=== PATIENT | female | born 1980 | race Caucasian/White ===

== ENCOUNTER → 2017-05-18 | Day surgery (SDC) | payer OTHER ==
--- NOTE | 2017-05-18 15:55 | MRI ---
BRAIN MRI WITH AND WITHOUT CONTRAST: Date: 05-18-17 Comparison: None. History: Seizure disorder. Technique: Multiplanar, multisequence MR imaging of the brain obtained without and with contrast maria d ritesh seizure protocol. FINDINGS: The diffusion weighted imaging demonstrates no evidence for acute infarction. The hippocampi appear symmetric in structure, signal intensity and size. The septum pellucidum appears partially absent. The coronal gradient echo imaging appears unremarkable. Along the posterior and superior aspect of the Sylvian fissure, there is an area of extensive abnorma l thickened cortex which demonstrates abnormal microlobulations with diffuse cortical thickening. The cortical sulcus in this region at the posterior superior aspect of the sylvian fissure is abnormally deep, extending into the deep white matter. This involves the posterior frontal region and involves a portion of the right frontal region which measures at least 4.5 cm in craniocaudal dimension x 2.1 cm in transverse dimension. This is best seen from the axial level of the thalami through the axial level of the centrum semiovale with abnormal thickened cortex extending centrally into the region of the deep white matter of the posterior right frontal lobe. Post contrast imaging demonstrates no abnormal enhancement within the brain parenchyma. IMPRESSION: There is an extensive area of abnormal cortex involving the posterior aspect and superior aspect of t he Sylvian fissure within the posterior right frontal lobe consistent with extensive cortical dysplas ia/polymicrogyria as described above. There are areas of partial absence of the septum pellucidum, wh ich can be seen on the basis of septo-optic dysplagia. POS: [facility]
== END ==
LOC: TBSIIMAG 12:35 → EEG 12:36
PROVIDERS: ATTEND Family Medicine
DX: G40.909 Epilepsy, unspecified, not intractable, without status epilepticus (principal)
CPT/HCPCS: 70553; 95822

== ENCOUNTER 2022-02-05 13:43 | Inpatient (IN) | payer MEDICARE, MEDICAID ==
[2022-02-05] MEDS ORDERED: HYDROmorphone 0.5 MG/0.5 ML SYRINGE SLOW IVP PRN (15:17)
[2022-02-05] MEDS ORDERED: HYDROmorphone 0.5 MG/0.5 ML SYRINGE SLOW IVP SCH ×2 (15:19→23:00)
[2022-02-05] MEDS ORDERED: Diazepam 5 MG TAB PO PRN (15:20)
[2022-02-05 15:45] VITALS: BMI 19.1
[2022-02-05] MEDS: Sodium Chloride 0.9% 1,000 ML IV SCH ×2 (16:41→23:30)
[2022-02-05] MEDS: Diazepam 5 MG TAB PO SCH (20:41)
[2022-02-05] MEDS: Lacosamide 50 mg Tablet PO SCH (20:41)
[2022-02-05] MEDS: OXcarbazepine 300 MG TAB PO SCH (20:42)
[2022-02-05] MEDS: Morphine 4 MG/ML VIAL SLOW IVP PRN (20:43)
[2022-02-05] MEDS ORDERED: OXcarbazepine 150 MG TAB PO SCH (21:00)
[2022-02-05] MEDS ORDERED: Lacosamide 50 mg Tablet PO SCH (21:00)
[2022-02-05] MEDS ORDERED: metroNIDAZOLE 500 MG in Premix Bag 1 BAG IVPB SCH (22:00)
[2022-02-05] MEDS: Vancomycin HCl 125 MG/5 ML (BATCHED) UDCUP PO SCH (23:28)
[2022-02-06] MEDS: Vancomycin HCl 125 MG/5 ML (BATCHED) UDCUP PO SCH ×4 (05:57→23:30)
[2022-02-06] MEDS: Morphine 4 MG/ML VIAL SLOW IVP PRN ×4 (06:04→23:30)
[2022-02-06 06:49] LABS: #Eosinphils 0.4 thou/uL (0.0-0.7); #Lymphocytes 1.6 thou/uL (1.20-3.40); #Monocytes 0.7 thou/uL (0.11-0.59); #Neutrophils 2.2 thou/uL (1.40-6.50); %Basophils 0.5 % (0.0-1.0); %Eosinophils 8.9 % (0.0-10.0); %Lymphocytes 32.3 % (21.0-51.0); %Monocytes 13.1 % (0.0-10.0); %Neutrophils 45.2 % (42.0-75.0); Hemoglobin 11.6 g/dL (12.0-16.0); Mean Corpuscular HGB CONC 34.2 g/dL (32.0-36.0); Mean Corpuscular Hemoglobin 33.4 pg (27.0-31.0); Mean Corpuscular Volume 97.9 fl (78.0-98.0); Platelet Count 164 10x3/uL (130-400); RBC Distribution Width 12.1 % (11.5-14.5); Red Blood Cell (RBC) Count 3.45 mill/uL (4.20-5.40); White Blood Cell (WBC) Count 4.9 10x3/uL (4.8-10.8)
[2022-02-06 07:33] LABS: Phosphorus 3.8 mg/dL (2.3-4.7)
[2022-02-06 07:40] LABS: ALT (SGPT) 13 U/L (8-55); AST (SGOT) 20 U/L (5-34); Albumin 3.4 g/dL (3.5-5.0); Alkaline Phosphatase 40 U/L (40-110); Anion Gap 11 mmol/L (10-20); BUN (Urea Nitrogen) Less than 4 mg/dL (7.0-18.7); Bilirubin, Total 0.4 mg/dL (0.2-1.2); Calc. Creatinine Clearance 113 mL/min (70-130); Calcium 8.2 mg/dL (7.8-10.44); Carbon Dioxide 21 mmol/L (22-29); Chloride 111 mmol/L (98-107); Estimated GFR 114; Globulin 2.3 g/dL (2.4-3.5); Glucose 83 mg/dL (70-105); Potassium 3.2 mmol/L (3.5-5.1); Protein, Total 5.7 g/dL (6.0-8.3); Sodium 140 mmol/L (136-145)
[2022-02-06] MEDS: OXcarbazepine 300 MG TAB PO SCH ×2 (07:58→19:49)
[2022-02-06] MEDS: Sodium Chloride 0.9% 1,000 ML IV SCH ×3 (07:58→23:31)
[2022-02-06] MEDS: Diazepam 5 MG TAB PO SCH ×2 (07:58→19:50)
[2022-02-06] MEDS: Lacosamide 50 mg Tablet PO SCH ×2 (07:58→19:49)
[2022-02-06] MEDS ORDERED: Enoxaparin Sodium 40 MG/0.4 ML SYRINGE SC SCH (09:00)
[2022-02-06] MEDS ORDERED: Ketorolac Tromethamine 30 MG/ML VIAL IVP SCH (12:00)
[2022-02-06 12:26] LABS: Campy jejuni + coli by PCR Negative (Negative); STEC Shiga Toxin 1+2 Negative (Negative); Salmonella spp. by PCR Negative (Negative); Shigella spp + EIEC by PCR Negative (Negative)
[2022-02-07] MEDS: Ondansetron PF 4 MG/2 ML Vial IVP PRN ×3 (02:12→14:01)
[2022-02-07] MEDS: Sodium Chloride 0.9% 1,000 ML IV SCH ×2 (06:00→14:01)
[2022-02-07] MEDS: Vancomycin HCl 125 MG/5 ML (BATCHED) UDCUP PO SCH ×3 (06:00→17:24)
[2022-02-07] MEDS: Morphine 4 MG/ML VIAL SLOW IVP PRN ×4 (06:27→18:05)
[2022-02-07 06:38] LABS: #Eosinphils 0.5 thou/uL (0.0-0.7); #Lymphocytes 1.8 thou/uL (1.20-3.40); #Monocytes 0.6 thou/uL (0.11-0.59); #Neutrophils 1.9 thou/uL (1.40-6.50); %Basophils 0.5 % (0.0-1.0); %Lymphocytes 37.4 % (21.0-51.0); %Monocytes 12.7 % (0.0-10.0); %Neutrophils 39.5 % (42.0-75.0); Mean Corpuscular HGB CONC 32.9 g/dL (32.0-36.0); Mean Corpuscular Hemoglobin 32.2 pg (27.0-31.0); Mean Corpuscular Volume 97.9 fl (78.0-98.0); Mean Platelet Volume 9.9 fL (7.4-10.4); Platelet Count 176 10x3/uL (130-400); RBC Distribution Width 12.1 % (11.5-14.5); Red Blood Cell (RBC) Count 3.42 mill/uL (4.20-5.40); White Blood Cell (WBC) Count 4.7 10x3/uL (4.8-10.8)
[2022-02-07 07:05] LABS: Anion Gap 7 mmol/L (10-20); BUN (Urea Nitrogen) Less than 4 mg/dL (7.0-18.7); Calc. Creatinine Clearance 122 mL/min (70-130); Calcium 7.8 mg/dL (7.8-10.44); Carbon Dioxide 22 mmol/L (22-29); Chloride 113 mmol/L (98-107); Estimated GFR 116; Glucose 76 mg/dL (70-105); Magnesium 1.8 mg/dL (1.6-2.6); Potassium 3.4 mmol/L (3.5-5.1); Sodium 139 mmol/L (136-145)
[2022-02-07] MEDS: Lacosamide 50 mg Tablet PO SCH ×2 (08:08→21:47)
[2022-02-07] MEDS: Diazepam 5 MG TAB PO SCH ×2 (08:08→21:47)
[2022-02-07] MEDS: Potassium Chloride 20 MEQ TAB PO SCH (08:08)
[2022-02-07] MEDS: OXcarbazepine 300 MG TAB PO SCH ×2 (08:08→21:47)
[2022-02-07] MEDS: Ketorolac Tromethamine 30 MG/ML VIAL IVP PRN ×2 (12:38→21:48)
[2022-02-07] MEDS: metroNIDAZOLE 500 MG in Premix Bag 1 BAG IVPB SCH ×2 (14:01→21:49)
[2022-02-07] MEDS: Diazepam 5 MG TAB PO PRN (16:14)
[2022-02-08] MEDS: Vancomycin HCl 125 MG/5 ML (BATCHED) UDCUP PO SCH ×4 (00:22→17:31)
[2022-02-08] MEDS: Morphine 4 MG/ML VIAL SLOW IVP PRN ×3 (00:22→17:34)
[2022-02-08] MEDS: Sodium Chloride 0.9% 1,000 ML IV SCH ×3 (00:30→13:15)
[2022-02-08] MEDS: Ondansetron PF 4 MG/2 ML Vial IVP PRN ×2 (02:22→12:25)
[2022-02-08] MEDS: Ketorolac Tromethamine 30 MG/ML VIAL IVP PRN ×3 (05:54→21:03)
[2022-02-08] MEDS: metroNIDAZOLE 500 MG in Premix Bag 1 BAG IVPB SCH ×3 (05:57→21:08)
[2022-02-08 07:58] LABS: #Eosinphils 0.4 thou/uL (0.0-0.7); #Lymphocytes 2.1 thou/uL (1.20-3.40); #Monocytes 0.5 thou/uL (0.11-0.59); #Neutrophils 2.2 thou/uL (1.40-6.50); %Basophils 0.7 % (0.0-1.0); %Eosinophils 8.1 % (0.0-10.0); %Lymphocytes 39.6 % (21.0-51.0); %Neutrophils 41.6 % (42.0-75.0); Hemoglobin 11.2 g/dL (12.0-16.0); Mean Corpuscular HGB CONC 33.5 g/dL (32.0-36.0); Mean Corpuscular Hemoglobin 33.1 pg (27.0-31.0); Mean Corpuscular Volume 98.8 fl (78.0-98.0); Mean Platelet Volume 9.9 fL (7.4-10.4); Platelet Count 189 10x3/uL (130-400); RBC Distribution Width 12.3 % (11.5-14.5); Red Blood Cell (RBC) Count 3.39 mill/uL (4.20-5.40); White Blood Cell (WBC) Count 5.2 10x3/uL (4.8-10.8)
[2022-02-08 07:59] LABS: ALT (SGPT) 21 U/L (8-55); AST (SGOT) 25 U/L (5-34); Albumin 2.9 g/dL (3.5-5.0); Alkaline Phosphatase 34 U/L (40-110); Anion Gap 8 mmol/L (10-20); BUN (Urea Nitrogen) Less than 4 mg/dL (7.0-18.7); Bilirubin, Total 0.2 mg/dL (0.2-1.2); Calc. Creatinine Clearance 116 mL/min (70-130); Calcium 7.8 mg/dL (7.8-10.44); Carbon Dioxide 21 mmol/L (22-29); Chloride 114 mmol/L (98-107); Estimated GFR 115; Glucose 70 mg/dL (70-105); Magnesium 1.6 mg/dL (1.6-2.6); Phosphorus 3.4 mg/dL (2.3-4.7); Potassium 3.5 mmol/L (3.5-5.1); Protein, Total 4.9 g/dL (6.0-8.3); Sodium 139 mmol/L (136-145)
[2022-02-08] MEDS: Lacosamide 50 mg Tablet PO SCH ×2 (09:16→21:02)
[2022-02-08] MEDS: Potassium Chloride 20 MEQ TAB PO SCH (09:17)
[2022-02-08] MEDS: OXcarbazepine 300 MG TAB PO SCH ×2 (09:17→21:03)
[2022-02-08] MEDS: Diazepam 5 MG TAB PO SCH ×2 (09:18→21:03)
[2022-02-08] MEDS ORDERED: Saccharomyces boulardii 250 MG CAP PO SCH (11:30)
[2022-02-08] MEDS: Diazepam 5 MG TAB PO PRN (13:14)
[2022-02-09] MEDS: Sodium Chloride 0.9% 1,000 ML IV SCH ×4 (00:10→23:57)
[2022-02-09] MEDS: Vancomycin HCl 125 MG/5 ML (BATCHED) UDCUP PO SCH ×5 (00:11→23:25)
[2022-02-09] MEDS: metroNIDAZOLE 500 MG in Premix Bag 1 BAG IVPB SCH ×3 (06:02→20:30)
[2022-02-09] MEDS: Ketorolac Tromethamine 30 MG/ML VIAL IVP PRN ×2 (06:09→23:52)
[2022-02-09 07:09] LABS: ALT (SGPT) 21 U/L (8-55); AST (SGOT) 20 U/L (5-34); Albumin 3.3 g/dL (3.5-5.0); Alkaline Phosphatase 42 U/L (40-110); Anion Gap 10 mmol/L (10-20); BUN (Urea Nitrogen) 5 mg/dL (7.0-18.7); Bilirubin, Total Less than 0.2 mg/dL (0.2-1.2); Calc. Creatinine Clearance 111 mL/min (70-130); Calcium 8.2 mg/dL (7.8-10.44); Carbon Dioxide 22 mmol/L (22-29); Chloride 113 mmol/L (98-107); Estimated GFR 114; Globulin 2.3 g/dL (2.4-3.5); Glucose 81 mg/dL (70-105); Potassium 3.9 mmol/L (3.5-5.1); Protein, Total 5.6 g/dL (6.0-8.3); Sodium 141 mmol/L (136-145)
[2022-02-09] MEDS: Potassium Chloride 20 MEQ TAB PO SCH (09:22)
[2022-02-09] MEDS: Lacosamide 50 mg Tablet PO SCH ×2 (09:23→20:30)
[2022-02-09] MEDS: Saccharomyces boulardii 250 MG CAP PO SCH (09:23)
[2022-02-09] MEDS: OXcarbazepine 300 MG TAB PO SCH ×2 (09:24→20:30)
[2022-02-09] MEDS: Diazepam 5 MG TAB PO SCH ×2 (09:24→20:29)
[2022-02-09] MEDS: Morphine 4 MG/ML VIAL SLOW IVP PRN (12:04)
[2022-02-09] MEDS: Ondansetron PF 4 MG/2 ML Vial IVP PRN ×2 (12:11→20:29)
[2022-02-10] MEDS: metroNIDAZOLE 500 MG in Premix Bag 1 BAG IVPB SCH ×3 (06:57→21:15)
[2022-02-10] MEDS: Vancomycin HCl 125 MG/5 ML (BATCHED) UDCUP PO SCH ×3 (06:57→18:06)
[2022-02-10] MEDS: Saccharomyces boulardii 250 MG CAP PO SCH (08:37)
[2022-02-10] MEDS: OXcarbazepine 300 MG TAB PO SCH ×2 (08:37→21:13)
[2022-02-10] MEDS: Potassium Chloride 20 MEQ TAB PO SCH (08:37)
[2022-02-10] MEDS: Lacosamide 50 mg Tablet PO SCH ×2 (08:37→21:13)
[2022-02-10] MEDS: Diazepam 5 MG TAB PO SCH ×2 (08:37→21:13)
[2022-02-10] MEDS: Sodium Chloride 0.9% 1,000 ML IV SCH ×2 (08:38→13:00)
[2022-02-10] MEDS: Ondansetron PF 4 MG/2 ML Vial IVP PRN (08:43)
[2022-02-10] MEDS: Morphine 4 MG/ML VIAL SLOW IVP PRN (08:43)
[2022-02-11] MEDS: Vancomycin HCl 125 MG/5 ML (BATCHED) UDCUP PO SCH ×3 (01:05→12:16)
[2022-02-11] MEDS: Sodium Chloride 0.9% 1,000 ML IV SCH ×2 (01:07→13:50)
[2022-02-11] MEDS: metroNIDAZOLE 500 MG in Premix Bag 1 BAG IVPB SCH ×2 (05:54→14:03)
[2022-02-11 07:52] VITALS: BP 110/64; TEMP 98.5
[2022-02-11] MEDS: Potassium Chloride 20 MEQ TAB PO SCH (08:55)
[2022-02-11] MEDS: Lacosamide 50 mg Tablet PO SCH (08:55)
[2022-02-11] MEDS: Diazepam 5 MG TAB PO SCH (08:56)
[2022-02-11] MEDS: OXcarbazepine 300 MG TAB PO SCH (08:56)
[2022-02-11] MEDS: Saccharomyces boulardii 250 MG CAP PO SCH (08:56)
[2022-02-11] MEDS: Ondansetron PF 4 MG/2 ML Vial IVP PRN (09:00)
[2022-02-11] MEDS: Morphine 4 MG/ML VIAL SLOW IVP PRN (09:00)
[2022-02-11] MEDS: Ketorolac Tromethamine 30 MG/ML VIAL IVP PRN (14:13)
== END 2022-02-11 16:17 | disposition home or self-care (01) | DRG 373 ==
LOC: T4-A 13:46 → OBSVTOIN 14:53
PROVIDERS: ADMIT Family Medicine; ATTEND Family Medicine
DX: A04.72 Enterocolitis due to Clostridium difficile, not specified as recurrent (principal); Z20.822 Contact with and (suspected) exposure to COVID-19; F41.9 Anxiety disorder, unspecified; F32.A Depression, unspecified; G40.909 Epilepsy, unspecified, not intractable, without status epilepticus; E87.6 Hypokalemia; D64.9 Anemia, unspecified; Z87.891 Personal history of nicotine dependence; Z88.0 Allergy status to penicillin; Z88.8 Allergy status to other drugs, medicaments and biological substances
CPT/HCPCS: 36415; 80048; 80053; 83630; 83735; 84100; 84145; 85025; 87324; 87449; 87493; 87505; J1170; J1885; J2270; J2405; J7050; U0003; U0005

== ENCOUNTER 2022-08-21 10:15 | Outpatient (CLI) | payer MEDICARE, MEDICAID ==
[2022-08-21 11:39] LABS: #Basophils 0.1 10x3/uL (0.0-0.2); #Eosinphils 0.2 10x3/uL (0.0-0.5); #Monocytes 0.5 10x3/uL (0.0-1.1); #Neutrophils 4.1 10x3/uL (1.5-8.4); %Basophils 0.9 % (0.0-2.0); %Eosinophils 3.6 % (0.0-6.0); %Lymphocytes 25.1 % (18.0-47.0); %Monocytes 8.2 % (0.0-10.0); Hemoglobin 11.8 g/dL (12.0-15.5); Mean Corpuscular HGB CONC 31.5 g/dL (32.0-36.0); Mean Corpuscular Hemoglobin 30.3 pg (27.0-33.0); Mean Corpuscular Volume 96.2 fl (81.6-98.3); Mean Platelet Volume 11.4 fl (7.4-10.4); Platelet Count 259 10x3/uL (150-450); RBC Distribution Width 13.4 % (11.5-14.5); White Blood Cell (WBC) Count 6.6 10x3/uL (3.5-10.5)
[2022-08-21 11:56] LABS: BHCG - Serum Negative (NEGATIVE); Pregs Control Background? CLEAR/WHITE (CLR/WHITE); Pregs Control Bar Appear? YES (CONTROL BAR)
[2022-08-21 11:59] LABS: ALT (SGPT) 25 U/L (8-55); AST (SGOT) 27 U/L (5-34); Albumin 4.5 g/dL (3.5-5.0); Alkaline Phosphatase 55 U/L (40-110); Anion Gap 14 mmol/L (10-20); BUN (Urea Nitrogen) 9 mg/dL (7.0-18.7); Bilirubin, Total 0.3 mg/dL (0.2-1.2); Calc. Creatinine Clearance 0 mL/min (70-130); Calcium 9.5 mg/dL (7.8-10.44); Carbon Dioxide 26 mmol/L (22-29); Chloride 110 mmol/L (98-107); Estimated GFR 95; Globulin 2.5 g/dL (2.4-3.5); Glucose 87 mg/dL (70-105); Potassium 4.8 mmol/L (3.5-5.1); Sodium 145 mmol/L (136-145)
== END 2022-08-21 10:16 | disposition home or self-care (01) ==
LOC: LABBT 10:15
PROVIDERS: ATTEND Surgery
DX: Z01.812 Encounter for preprocedural laboratory examination (principal); K43.9 Ventral hernia without obstruction or gangrene
CPT/HCPCS: 80053; 84703; 85025